=== PATIENT | male | born 1995 | race Two or more races ===

== ENCOUNTER 2021-05-17 22:23 | Emergency (ER) | payer MEDICAID, OTHER ==
[~2021-05-17] VITALS: Ht 180.3 cm; Wt 83.9 kg
[2021-05-17 22:30] VITALS: BP 109/81
== END 2021-05-18 02:44 | disposition left against medical advice (07) ==
LOC: ER 22:26
DX: J02.9 Acute pharyngitis, unspecified (principal); Z53.21 Procedure and treatment not carried out due to patient leaving prior to being seen by health care provider

== ENCOUNTER 2023-03-26 23:22 | Emergency (ER) | payer MEDICAID | END 2023-03-27 01:53 | disposition left against medical advice (07) | LOC: ER 23:22 | DX: N48.89 Other specified disorders of penis (principal); Z53.21 Procedure and treatment not carried out due to patient leaving prior to being seen by health care provider ==